=== PATIENT | male | born 1985 | race African-American/Black ===

== ENCOUNTER 2024-06-19 20:52 | Emergency (ER) | payer OTHER ==
[2024-06-19] MEDS ORDERED: IBUPROFEN 600 MG TABLET (FP) PO ONE (21:22)
[2024-06-19] MEDS: IBUPROFEN 600 MG TABLET (FP) PO ONE (21:26)
[2024-06-19 21:43] VITALS: RESP 18; TEMP 98.6; BMI 33.0
[2024-06-20 02:23] VITALS: BP 149/93; PULSE 90
== END 2024-06-19 21:58 | disposition home or self-care (01) ==
LOC: FER 20:52
PROC: 0PSTXZZ Reposition Right Finger Phalanx, External Approach (ICD-10-PCS; principal; 2024-06-19)
DX: S63.296A Dislocation of distal interphalangeal joint of right little finger, initial encounter (principal); W21.00XA Struck by hit or thrown ball, unspecified type, initial encounter; Y93.67 Activity, basketball
CPT/HCPCS: 73140-TC-RT-FY; 99283-25